=== PATIENT | female | born 1960 | race Caucasian/White ===

== ENCOUNTER → 2019-03-03 | Outpatient (CLI) | payer OTHER ==
[~2019-03-03] MED LIST: AZEL50GE2 TP; CETI10TA22 PO; ESTR1TAB5 PO; PRED20TA PO; TEMA15CA PO
--- NOTE | 2019-03-03 17:04 | KCIC ---
EXAMINATION: Magnetic resonance imaging (MRI) of the brain and brainstem without contrast 03/03/2019 4:15 PM HISTORY: Concussion without loss of consciousness. Memory loss. TECHNIQUE: Multiplanar multi-weighted MRI of the brain and brainstem was performed without intravenous contrast using the general brain protocol. COMPARISON: None available. FINDINGS: The scalp and calvarium are normal. The superior sagittal sinus demonstrates normal venous flow. The corpus callosum is normal in shape and signal intensity. The posterior fossa is unremarkable. The pituitary and sella are normal. The brainstem and craniocervical junction are unremarkable. Few scattered T2/FLAIR signal hyperintense foci in subcortical white matter are within the range of age-related degenerative changes. Diffusion weighted images reveal no hyperintensities to suggest acute cerebral infarction. The susceptibility weighted sequences reveal no evidence of acute or chronic hemorrhage. The ventricles are normal in size and position without evidence of hydrocephalus. The paranasal sinuses are normal. The visualized portions of the mastoids are unremarkable. The orbits appear normal. Normal flow voids are demonstrated in the carotid arteries and basilar artery. IMPRESSION: No evidence for acute or subacute ischemia. No intracranial microhemorrhages to suggest any history of diffuse axonal injury. Electronically signed by: Mae Weathers MD (03/03/2019 5:01 PM) [id number]
== END | disposition home or self-care (01) ==
LOC: KCIC MRI 15:38
PROVIDERS: ATTEND Physical Medicine & Rehabilitation
DX: S06.0X0D Concussion without loss of consciousness, subsequent encounter (principal); Z98.1 Arthrodesis status; X58.XXXD Exposure to other specified factors, subsequent encounter
CPT/HCPCS: 70551